=== PATIENT | female | born 1995 | race Caucasian/White ===

== ENCOUNTER 2020-02-07 12:47 | Emergency (ER) | payer OTHER, SELFPAY ==
--- NOTE | 2020-02-07 15:17 | PC.NURSE ---
pt called x 3 in waiting room
== END 2020-02-07 16:32 | disposition left against medical advice (07) ==
PROVIDERS: Emergency Provider Emergency Medicine
DX: M79.605 Pain in left leg (principal); M79.604 Pain in right leg
CPT/HCPCS: 99281

== ENCOUNTER 2020-02-09 16:55 | Emergency (ER) | payer OTHER, SELFPAY ==
[2020-02-09 20:00] VITALS: BP 122/72; PULSE 73; RESP 17; O2SAT 98
[2020-02-09 20:43] VITALS: BP 130/73; PULSE 72; RESP 16; TEMP 36.9; O2SAT 99; BMI 36.3
[2020-02-09 21:06] LABS: Appearance Urine CLEAR; Color Urine YELLOW; Glucose Urine UA NEG (NEG); Leukocyte Esterase Urine NEG (NEG); Nitrite Urine NEG (NEG); PH 5.5 (5.0-8.0); Specific Gravity - Urine >= 1.030 (1.005-1.025); Urine Blood NEG (NEG); Urine Ketones NEG (NEG); Urine Protein NEG (NEG-TRACE)
[2020-02-09 21:12] LABS: UPreg QC Valid YES; Urine Pregnancy POSITIVE (NEGATIVE)
--- NOTE | 2020-02-09 21:17 | ED.ABDPAIN ---
HPI - Abdominal Pain General Chief Complaint: Abdominal Pain Stated Complaint: ABD PAIN/10 WKS PREG Time Seen by Provider: 02/09/20 21:13 History of Present Illness HPI narrative: Patient is a 24-year-old female . Patient's last menstrual period was November 28. Presents today with having abdominal pain mainly over the lower abdomen. There is no vaginal discharge. No fever no chills no coughing or congestion or upper respiratory symptoms no diarrhea positive nausea. Patient from home. Pain is rated as 5/10 over the entire lower abdomen. Patient is sexually active no vaginal discharge. No history of gonorrhea chlamydia. No history of ectopic in the past. Patient had a successful vaginal delivery during her last Related Data Date of Last Menstrual Period: 12/01/19 Allergies Allergy/AdvReac Type Severity Reaction Status Date / Time No Known Allergies Allergy Unverified 01/01/20 19:07 [No Known Allergies*] Review of Systems Review of Systems Constitutional: No Weight loss, No Fever, No Chills, No Night Sweats, No Fatigue, No Malaise ENT/Mouth: No Hearing loss, No Ear Pain, No Nasal Congestion, No Sinus Pain, No Hoarseness, No sore throat, No Rhinorrhea, No Swallowing Difficulty Eyes: No Eye Pain, No Swelling, No Redness, No Foreign Body, No Discharge, No Vision Changes Cardiovascular: No Chest Pain, No SOB, No Dyspnea on Exertion, No Orthopnea, No Edema, No Palpitations Respiratory: No Cough, No Sputum, No Wheezing, No Smoke Exposure, No Dyspnea Gastrointestinal: No Nausea, No Vomiting, No Diarrhea, No Constipation, positive abdominal Pain, No Hematochezia, No Melena Genitourinary: no irregular bleeding, No Dysuria, No Urinary Frequency, No Hematuria, No Urinary Incontinence, No Urgency, No Flank Pain, No Urinary Flow Changes, No Hesitancy Musculoskeletal: No joint pain, No Myalgias, No Joint Swelling Skin: No Skin Lesions, No rash Neuro: No Weakness, No Numbness, No Paresthesias, No Loss of Consciousness, No Dizziness, No Headache Psych: No Anxiety/Panic, No Depression, No SI/HI/AH/VH, No Social Issues, Heme/Lymph: No Bruising, No Bleeding,No Lymphadenopathy Endocrine: No Polyuria, No Polydipsia, No Temperature Intolerance Physical Exam Vital Signs: Vital Signs: Vital Signs Temp Pulse Resp BP Pulse Ox 02/09/20 20:43 98.4 F 72 16 130/73 99 02/09/20 20:00 73 17 122/72 98 Body Mass Index 36.3 Appearance: Alert. Oriented X3. No acute distress. Eyes: Pupils equal, round and reactive to light. ENT: Pharynx normal. Neck: Normal inspection. Neck supple. No lymph nodes noted. No crepitus CVS: Normal heart rate and rhythm. Pulses normal. Normal S1 and S2 Respiratory: No respiratory distress. Breath sounds normal. No Wheezing. No rales Abdomen: Soft and nontender. No rigidity. No distention. good BS x4 Skin: Skin warm and dry. Normal skin color. Normal skin turgor. Extremities: No lower extremity edema. Neurovascular intact to all extremities. No Lacerations. No Rash Neuro: Oriented X 3. No motor deficit. No sensory deficit. Moving all extermities. No slurred speech MDM - Abdominal Pain MDM Narrative Medical decision making narrative: Ultrasound shows an intrauterine . Patient's urine showed no evidence of infection. Patient's electrolytes unremarkable. Will discharge patient home. Blood type is O-positive. Currently in stable condition. Repeat abdominal exam is soft nontender. Risk of appendicitis is low. Question of patient's pain from a corpus luteal cyst. 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 Lab Data Attestation: I reviewed the patient's lab results. Result diagrams: 02/09/20 22:15 02/09/20 22:16 Labs: Lab Results 02/09/20 02/09/20 02/09/20 Range/Units 20:58 20:58 22:15 WBC 12.9 H (4.8-10.8) X10*3/uL RBC 4.34 (4.20-5.50) X10*6/uL Hgb 12.5 (12.0-16.0) g/dl Hct 37.5 (37-47) % MCV 86.4 (80-98) fL MCH 28.8 (27.0-33.0) pg MCHC 33.3 (31.0-35.0) g/dl RDW 12.9 (11.0-16.0) % Plt Count 299 (160-400) X10*3/uL MPV 9.7 (9.4-12.3) fL Immature Gran % (Auto) 0.6 H (0.0-0.4) % Neut % (Auto) 61.3 (45-73) % Lymph % (Auto) 31.6 (20-40) % [place] % (Auto) 4.9 (2-11) % Eos % (Auto) 1.1 (0-4) % Baso % (Auto) 0.5 (0-2) % Lymph # (Auto) 4.1 (1.2-4.9) X10*3/uL [place] # (Auto) 0.6 (0.1-1.2) X10*3/uL Eos # (Auto) 0.1 (0.0-0.4) X10*3/uL Baso # (Auto) 0.1 (0.0-0.2) X10*3/uL Abs Immat Gran (auto) 0.08 H (0.00-0.03) X10*3/uL Absolute Neuts (auto) 7.9 (2.0-8.3) X10*3/uL Absolute Nucleated RBC 0.000 (0.0-0.012) X10*3/uL Nucleated RBC % (auto) 0.0 (0.0-0.2) /100WBC Sodium (135-145) mmol/L Potassium (3.3-5.1) mmol/l Chloride (96-108) mmol/L Carbon Dioxide (22-29) mmol/L Anion Gap (12-20) BUN (9-16) mg/dL Creatinine (0.5-1.4) mg/dL Estim Creat Clear Calc Estimated GFR Random Glucose (60-115) mg/dL Calcium (8.4-10.2) mg/dL Total Bilirubin (0.0-1.0) mg/dL Direct Bilirubin (0.0-0.5) mg/dL AST (5-31) U/L ALT (0-31) U/L Alkaline Phosphatase (39-117) U/L Total Protein (6.5-8.0) g/dL Albumin (3.5-5.0) g/dL Beta HCG, Quant mIU/mL Urine Color YELLOW Urine Appearance CLEAR Urine pH 5.5 (5.0-8.0) Ur Specific [place] >= 1.030 H (1.005-1.025) Urine Protein NEG (NEG-TRACE) MG/DL Urine Glucose (UA) NEG (NEG) MG/DL Urine Ketones NEG (NEG) MG/DL Urine Blood NEG (NEG) Urine Nitrite NEG (NEG) Ur Leukocyte Esterase NEG (NEG) Urine Test POSITIVE H (NEGATIVE) Blood Type 02/09/20 02/09/20 Range/Units 22:16 22:16 WBC (4.8-10.8) X10*3/uL RBC (4.20-5.50) X10*6/uL Hgb (12.0-16.0) g/dl Hct (37-47) % MCV (80-98) fL MCH (27.0-33.0) pg MCHC (31.0-35.0) g/dl RDW (11.0-16.0) % Plt Count (160-400) X10*3/uL MPV (9.4-12.3) fL Immature Gran % (Auto) (0.0-0.4) % Neut % (Auto) (45-73) % Lymph % (Auto) (20-40) % [place] % (Auto) (2-11) % Eos % (Auto) (0-4) % Baso % (Auto) (0-2) % Lymph # (Auto) (1.2-4.9) X10*3/uL [place] # (Auto) (0.1-1.2) X10*3/uL Eos # (Auto) (0.0-0.4) X10*3/uL Baso # (Auto) (0.0-0.2) X10*3/uL Abs Immat Gran (auto) (0.00-0.03) X10*3/uL Absolute Neuts (auto) (2.0-8.3) X10*3/uL Absolute Nucleated RBC (0.0-0.012) X10*3/uL Nucleated RBC % (auto) (0.0-0.2) /100WBC Sodium 136 (135-145) mmol/L Potassium 4.1 (3.3-5.1) mmol/l Chloride 102 (96-108) mmol/L Carbon Dioxide 25 (22-29) mmol/L Anion Gap 13 (12-20) BUN 8 L (9-16) mg/dL Creatinine 0.68 (0.5-1.4) mg/dL Estim Creat Clear Calc 142.3 Estimated GFR > 60 Random Glucose 85 (60-115) mg/dL Calcium 8.8 (8.4-10.2) mg/dL Total Bilirubin 0.3 (0.0-1.0) mg/dL Direct Bilirubin < 0.2 (0.0-0.5) mg/dL AST 21 (5-31) U/L ALT 24 (0-31) U/L Alkaline Phosphatase 39 (39-117) U/L Total Protein 7.2 (6.5-8.0) g/dL Albumin 4.3 (3.5-5.0) g/dL Beta HCG, Quant 75461 mIU/mL Urine Color Urine Appearance Urine pH (5.0-8.0) Ur Specific [place] (1.005-1.025) Urine Protein (NEG-TRACE) MG/DL Urine Glucose (UA) (NEG) MG/DL Urine Ketones (NEG) MG/DL Urine Blood (NEG) Urine Nitrite (NEG) Ur Leukocyte Esterase (NEG) Urine Test (NEGATIVE) Blood Type O Positive Discharge Plan Discharge Clinical Impression: Abdominal pain Patient Disposition: Home, Self-Care Instructions: Abdominal Pain in (ED) Referrals: Eddie Navarrete MD [Physician] - 2 days [facility] Past Medical History : 2 Para: 1 Date of Last Menstrual Period: 12/01/19 Social History Social History Smoking Status: Former smoker Smoked in Last 30 Days: No Use of substances other than those prescribed or required for medical reasons: No Advance Directives: No Advance Directives Information Provided: Yes
--- NOTE | 2020-02-09 21:18 | US_ITS ---
EXAMINATION: US OB CLINICAL INFORMATION: with pain with question of ectopic . COMPARISON: None TECHNIQUE: Both transabdominal and endovaginal scanning was performed. FINDINGS: A gestational sac was present in the uterus along with a yolk sac and a pole. The crown-rump length was 3 cm corresponding to a gestational age of 10 weeks 0 days with an MESHA of 09/06/2020. The fetus was active during the course of the exam and a normal heart rate of 169 bpm was noted. A small area of subchorionic hemorrhage was noted. The right ovary measures 3.5 x 1.9 x 2.5 cm and contains a 1.9 x 1.6 x 2.0 cm cyst. The left ovary measures 4.0 x 1.5 x 3.5 cm and contains a 1.6 x 1.4 x 1.8 cm cyst. No free fluid is present in the cul-de-sac. US/US OB <= 14 weeks fetus IMPRESSION: A single active fetus is noted with a normal heart rate with gestational age estimated at 10 weeks with an MESHA of 09/06/2020.
--- NOTE | 2020-02-09 21:37 | PC.NURSE ---
patient taken to ultrasound for imaging. this delying labs and iv insertion.
[2020-02-09] MEDS: 0.9 % Sodium Chloride 1,000 ML 999 ML IVCONT (22:00)
[2020-02-09 22:27] LABS: Basophils Absolute Auto 0.1 X10*3/uL (0.0-0.2); Basophils Percent Auto 0.5 % (0-2); Eosinophils Absolute Auto 0.1 X10*3/uL (0.0-0.4); Eosinophils Percent Auto 1.1 % (0-4); Hematocrit 37.5 % (37-47); Hemoglobin 12.5 g/dl (12.0-16.0); Imm Gran Abs Auto 0.08 X10*3/uL (0.00-0.03); Imm Gran Pct Auto 0.6 % (0.0-0.4); Lymphocytes Absolute Auto 4.1 X10*3/uL (1.2-4.9); Lymphocytes Percent Auto 31.6 % (20-40); MANUAL DIFF FLAG NO; Mean Corpuscular HGB Conc 33.3 g/dl (31.0-35.0); Mean Corpuscular Hemoglobin 28.8 pg (27.0-33.0); Mean Corpuscular Volume 86.4 fL (80-98); Mean Platelet Volume 9.7 fL (9.4-12.3); Monocytes Absolute Auto 0.6 X10*3/uL (0.1-1.2); Monocytes Percent Auto 4.9 % (2-11); Neutrophils Absolute Auto 7.9 X10*3/uL (2.0-8.3); Neutrophils Percent Auto 61.3 % (45-73); Platelet Count 299 X10*3/uL (160-400); Red Blood Count 4.34 X10*6/uL (4.20-5.50); Red Cell Distribution Width 12.9 % (11.0-16.0); White Blood Count 12.9 X10*3/uL (4.8-10.8)
[2020-02-09 22:52] LABS: Alanine Aminotransferase 24 U/L (0-31); Albumin Level 4.3 g/dL (3.5-5.0); Alkaline Phosphatase 39 U/L (39-117); Anion Gap 13 (12-20); Aspartate Amino Transferase 21 U/L (5-31); Bilirubin Direct < 0.2 mg/dL (0.0-0.5); Bilirubin Total 0.3 mg/dL (0.0-1.0); Blood Urea Nitrogen 8 mg/dL (9-16); Calcium 8.8 mg/dL (8.4-10.2); Carbon Dioxide 25 mmol/L (22-29); Chloride 102 mmol/L (96-108); Creatinine Clr Calc Pharmacy 142.3; Estimated Glomerular Filt Rate > 60; Glucose Random 85 mg/dL (60-115); Potassium 4.1 mmol/l (3.3-5.1); Sodium 136 mmol/L (135-145); Total Protein 7.2 g/dL (6.5-8.0)
== END 2020-02-09 23:49 | disposition home or self-care (01) ==
PROVIDERS: Emergency Provider Emergency Medicine Emergency Medical Services
DX: O26.91 Pregnancy related conditions, unspecified, first trimester (principal); R10.9 Unspecified abdominal pain; Z3A.10 10 weeks gestation of pregnancy
CPT/HCPCS: 36415; 76801; 80048; 80076; 81003; 81025; 84702; 85025; 86900; 86901; 96360; 99284

== ENCOUNTER 2022-04-29 22:29 | Emergency (ER) | payer OTHER, SELFPAY ==
[2022-04-29 22:31] VITALS: BP 142/79; PULSE 86; RESP 18; TEMP 35.9; O2SAT 97; BMI 46.5
[2022-04-29] MEDS: Ketorolac Tromethamine 15 MG/ML VIAL 30 MG IM (22:56)
--- NOTE | 2022-04-29 22:56 | ED.DENTAL ---
HPI - Dental/Oral General Chief complaint: Dental/Oral Stated complaint: pain inside mouth Time Seen by Provider: 04/29/22 22:44 Source: patient Mode of arrival: ambulatory Limitations: no limitations History of Present Illness HPI Narrative: This is a 26-year-old female presenting with pain to her right upper molar times a few days worsening, patient tells me that she was scheduled to get a root canal however she tells me she again ordered her dentist suggestion, since then her right tooth has been bothering her, she tells me it hurts to open her mouth, now she reports she has a bump in front of her right ear. Patient denies any difficulty in controlling secretions. Denies fevers, chills, changes in voice, nausea, vomiting, chest pain, shortness of breath, headache, vision changes, dizziness, ear pain, neck pain. Patient has not seen her dentist and a little while. Related Data Previous Rx's Medication Instructions Recorded amoxicillin 875 mg-potassium 1 tab PO BID 7 days #14 tabs 04/29/22 clavulanate 125 mg tablet ketorolac 10 mg tablet 10 mg PO TID PRN pain 5 days #15 04/29/22 tabs Allergies Allergy/AdvReac Type Severity Reaction Status Date / Time No Known Allergies Allergy Unverified 01/01/20 19:07 [No Known Allergies*] Review of Systems Review of Systems: Constitutional : No Weight loss, No Fever, No Chills, No Fatigue, No Malaise ENT/Mouth : No sore throat, No Rhinorrhea, + Dental pain Eyes: No Eye Pain, No Swelling, No Redness Cardiovascular : No Chest Pain, No SOB, No Dyspnea on Exertion, No Orthopnea, No Edema, No Palpitations Respiratory : No Cough, No Sputum, No Wheezing Gastrointestinal : No Nausea, No Vomiting, No Diarrhea, No Constipation, No abdominal Pain, No Hematochezia, No Melena Genitourinary : No Dysuria, No Urinary Frequency, No Hematuria, Musculoskeletal : No joint pain, No Myalgias, No Joint Swelling Skin : No Skin Lesions, No rash Neuro : No Weakness, No Numbness, No Dizziness, No Headache Psych : No Anxiety/Panic, No Depression All other systems reviewed and are negative Yes all other systems are reviewed and are negative PMFSH Past Medical History Attestation statement: The following information was validated with the patient. Source: old records reviewed and nursing notes reviewed Physical Exam Vital Signs: Vital Signs: Last Vital Signs Temp 96.6 F L 04/29/22 22:31 Pulse 86 04/29/22 22:31 Resp 18 04/29/22 22:31 BP 142/79 H 04/29/22 22:31 Pulse Ox 97 04/29/22 22:31 O2 Del Method 04/29/22 22:31 BMI result Body Mass Index 46.5 Vital signs stable Appearance: Alert.? Oriented X3.? No acute distress.? Head: Normocephalic, atraumatic, no step-offs or deformities Eyes: Pupils equal, round and reactive to light.? ENT: Pharynx normal.? Uvula midline. Patient speaking full sentences controlling secretions well. Patient reports pain when opening mouth however able to open her mouth. Patient has a caries noted to the 3rd molar on the left upper area. Patient has poor dentition throughout halitosis. She has left preauricular lymphadenopathy present on my exam. No signs of dental abscess. Neck: Normal inspection.? Neck supple.? CVS: Normal heart rate and rhythm.? Pulses normal.? Respiratory: No respiratory distress.? Breath sounds normal.? Abdomen: Soft and nontender.? Skin: Skin warm and dry.? Normal skin color.? Normal skin turgor.? Extremities: 5/5 strength to bilateral upper and lower extremities Neuro: Oriented X 3.? No motor deficit.? No sensory deficit. CN 2-12 intact Course Reevaluation(s) Reevaluation #1: My attending Dr. Everett evaluated patient, also feels as though this is a dental caries reactive lymphadenopathy. No signs of abscess. No need for further imaging. Patient will be discharged home with Augmentin and PCP and dental follow-up. Educated patient on diagnosis and treatment plan, answered all question, patient verbalizes understanding. At this time patient will be discharged home, advised to return with new or worsening symptoms. Educated on worrisome signs and symptoms and when to return. At this time I feel comfortable discharge home. Time: 23:01 Medical Decision Making Medical Decision Making MDM Narrative: This is a 26-year-old female presenting with dental pain for few days progressively worsening. Also reporting a bump in front of her left ear. Denies fevers and chills. Denies changes in voice or difficulties controlling secretions. Physical exam significant for Pharynx normal.? Uvula midline. Patient speaking full sentences controlling secretions well. Patient reports pain when opening mouth however able to open her mouth. Patient has a caries noted to the 3rd molar on the left upper area. Patient has poor dentition throughout halitosis. She has left preauricular lymphadenopathy present on my exam. No signs of dental abscess. Likely dental caries with infection causing reactive lymphadenopathy. Unlikely dental abscess, epiglottitis, peritonsillar abscess, no signs of airway compromise. Plan at this time discharge patient home with antibiotics and follow-up with dentist. Have my attending review this case. Differential Diagnosis Differential Diagnoses: The differential diagnosis associated with the presentation includes Likely dental caries with infection causing reactive lymphadenopathy. Unlikely dental abscess, epiglottitis, peritonsillar abscess, no signs of airway compromise. Admission/Observation Consideration of admission/observation: Escalation of care including admission/observation considered Unlikely Tests considered The following testing was considered but not selected: Reason for CT of soft tissues are neck, unlikely abscess. Core Measures AMI core measures followed: Yes Measure exclusions: not indicated Discharge Plan Discharge Clinical Impression: Toothache, Dental caries Patient Disposition: Home, Self-Care Instructions: Toothache (ED) Additional Instructions: Take your medications as prescribed. If you were prescribed antibiotics today, it is important that you take your medication to their entirety, do not skip any doses, do not finish them early. Follow-up with your primary care provider this week. Return to the emergency department with new or worsening symptoms. Such as fevers, chills, chest pain, shortness of breath, nausea, vomiting, dizziness, headache, vision changes, lethargy, inability to control secretions or swallow In case of emergency call [phone] Please follow-up with a dentist if you do not have 1 please call [phone] this is the [facility] Prescriptions: New ketorolac 10 mg tablet 10 mg PO TID PRN (Reason: pain) 5 Days Qty: 15 0RF Rx Instructions: Tolerated IM in the department amoxicillin-pot clavulanate 875-125 mg tablet 1 tab PO BID 7 Days Qty: 14 0RF Referrals: Physician,Unknown J [Primary Care Provider] - 2 days Stand Alone Forms: Work/School Release
--- OUTSIDE RECORDS SUMMARY | 2022-04-29 23:17 | XMS_ITS ---
:1995 Author Care Team Providers Name Role Phone [facility] vider [phone] Allergies Code Code System Name Reaction Severity Status Onset NKDA ? Medications Name Status Start Date Stop Date ? ? acetaminophen 325 mg tablet Completed ? 11/15 TAKE 3 TABLETS BY MOUTH EVERY 8 HOURS NEEDED amoxicillin 875 mg-potassium clavulanate 125 mg tablet Completed ? 12/10/2020 TAKE 1 TABLET BY MOUTH TWICE A DAY FOR 10 DAYS aspirin 81 mg tablet,delayed release Completed ? 12/10/2020 TAKE 1 TABLET BY MOUTH TWICE A DAY docusate sodium 100 mg capsule Completed ? 0 12/10/2020 TAKE 1 CAPSULE BY MOUTH TWICE A DAY ferrous sulfate 325 mg (65 mg iron) tablet Completed ? 12/10/2020 TAKE 1 TABLET BY MOUTH EVERY OTHER DAY fluticasone propionate 50 mcg/actuation nasal spray,suspension C ompleted ? 12/10/2020 USE 2 SPRAYS IN EACH NOSTRIL EVERY DAY hydrocortisone 1 % topical ointment Completed ? 12/10/2020 APPLY TO AFFECTED AREA 3 TIMES A DAY ibuprofen 800 mg tablet Completed ? 12/11/19 21 TAKE 1 TABLET BY MOUTH EVERY 8 HOURS WITH FOOD OR MILK Mi-Acid Gas Relief (simethicone) 80 mg chewable tablet Completed ? 12/10/2020 CHEW 1 TABLET 3 TIMES A DAY NEEDED FOR GAS oxycodone 5 mg tablet Completed ? 12/10/2020 1 TABLET BY MOUTH EVERY 3 HOURS NEEDED FOR PAIN SEVERE,INSTR (7 10) Vitamins Plus Low Iron 27 mg iron-1 mg tablet Completed ? 12/10/2020 TAKE 1 TABLET BY MOUTH EVERY DAY ProAir HFA 90 mcg/actuation aerosol inhaler Completed ? 12/10/2020 INHALE 2 PUFFS INTO THE LUNGS EVERY 4 H OURS NEEDED FOR COUGH, WHEEZING OR SHORTNESS OF BREATH. Problems Name Status Onset Date Source ? Ingrowing Nail Active 12/10/2020 ? Procedures Date Name Performed by ? ? Section Information not avai lable Results Lab Results None recorded. Past Encounters Encounter Date Diagnosis Provider 12/17/2020 Ingrowing Nail Juan gutierrez DPM: [address] [facility] [address], [place] [address], Ph. 12/10/2020 Paronychia Juan gutierrez DPM: [address] [facility] [address], [facility] A [address], Ph. Social History Tobacco Smoking Status Former Smoker Vaccine List None recorded. Plan of Care Reminders Provider Appointments None recorded. ? ? Lab None recorded. ? ? Referral None recorded. ? ? Procedures None recorded. ? ? Surgeries None recorded. ? ? Imaging None recorded. ? ? Vitals 12/17/2020 09:30AM FOLLOW UP 15 Height 5 ft 4 in 12/10/2020 09:30AM NEW PATIENT 30 Height Weight BMI 5 ft 4 in 189 lbs 32.4 kg/m2
== END 2022-04-29 23:48 | disposition home or self-care (01) ==
PROVIDERS: Emergency Provider Internal Medicine
DX: K08.89 Other specified disorders of teeth and supporting structures (principal); K02.9 Dental caries, unspecified
CPT/HCPCS: 96372; 99283; 99284; J1885

== ENCOUNTER 2022-08-21 21:03 | Emergency (ER) | payer OTHER, SELFPAY ==
--- NOTE | ~2022-08-21 | XR_ITS ---
EXAMINATION: CHEST 2 VIEWS CLINICAL INFORMATION: shortness of breath. COMPARISON: No recent pertinent prior studies are available for comparison. TECHNIQUE: PA and lateral views of the chest obtained. FINDINGS: The lungs are well expanded. No focal infiltrate, effusion, edema, or pneumothorax. Cardiac and mediastinal silhouettes are within normal limits for technique. No acute bony abnormality seen XR/XR chest 2V IMPRESSION: No evidence of acute disease
[2022-08-21 21:04] VITALS: BP 140/79; PULSE 97; RESP 18; TEMP 36.7; O2SAT 92; BMI 23.5
--- NOTE | 2022-08-21 21:08 | ED_ITS ---
HPI - Asthma General Chief Complaint: Asthma <Bong Turpin - Last Filed: 08/21/22 21:09> Stated Complaint: asthma attack <Bong Turpin - Last Filed: 08/21/22 21:09> Time Seen by Provider: 08/22/22 00:14 <Bong Turpin - Last Filed: 08/21/22 21:09> Source: patient <JHONNY Marie Last Filed: 08/22/22 02:12> Mode of arrival: ambulatory <JHONNY Marie Last Filed: 08/22/22 02:12> Limitations: no limitations <JHONNY Marie Last Filed: 08/22/22 02:12> History of Present Illness HPI Narrative: 26-year-old female presents to the ED for asthma exacerbation. patient states coughing with chest tightness. Patient denies any leg swelling calf pa in, coughing up blood, recent long travel, recent surgery, or pleurisy. Patient denies any control use. <JHONNY Marie Last Filed: 08/22/22 02:12> Related Data Home Medications: Previous Rx's Medication Instructions Recorded amoxicillin 875 mg-potassium 1 tab PO BID 7 days #14 tabs 04/29/22 clavulanate 125 mg tablet ketorolac 10 mg tablet 10 mg PO TID PRN pain 5 days #15 04/29/22 tabs prednisone 20 mg tablet 40 mg PO DAILY 5 days #10 tabs 04/29/22 benzonatate 200 mg capsule 200 mg PO TID PRN cough 5 days #15 08/22/22 caps prednisone 20 mg tablet 60 mg PO DAILY 5 days #15 tabs 08/22/22 <Bong Turpin - Last Filed: 08/21/22 21:09> Allergies/Adverse Reactions: Allergies Allergy/AdvReac Type Severity Reaction Status Date / Time No Known Allergies Allergy Unverified 01/01/20 19:07 [No Known Allergies*] <Bong Turpin - Last Filed: 08/21/22 21:09> Review of Systems Review of Systems: Coughing. asthma exacerbation <JHONNY Marie Last Filed: 08/22/22 02:12> Yes all other systems are reviewed and are negative <JHONNY Marie - Last Filed: 08/22/22 02:12> [facility] Social History Social History: Social History Advance Directives: No Advance Directives Information Provided: Yes <Bong Turpin - Last Filed: 08/21/22 21:09> Physical Exam Vital Signs: Vital Signs: Last Vital Signs Temp 98.3 F 08/22/22 01:47 Pulse 104 H 08/22/22 01:47 Resp 16 08/22/22 01:47 BP 132/79 08/22/22 01:47 Pulse Ox 95 08/22/22 01:47 O2 Del Method Room Air 08/22/22 01:47 BMI result Body Mass Index 23.5 <Bong Turpin - Last Filed: 08/21/22 21:09> Vital Signs: Last Vital Signs Temp 98.3 F 08/22/22 01:47 Pulse 104 H 08/22/22 01:47 Resp 16 08/22/22 01:47 BP 132/79 08/22/22 01:47 Pulse Ox 95 08/22/22 01:47 O2 Del Method Room Air 08/22/22 01:47 BMI result Body Mass Index 23.5 <JHONNY Marie Last Filed: 08/22/22 02:12> Const: General: cooperative, healthy appearing, comfortable, no acute distress, well developed, alert, awake and Physically active <JHONNY Marie Last Filed: 08/22/22 02:12> Orientation/consciousness: oriented to person, oriented to place, oriented to time and patient oriented x3 <JHONNY Marie Last Filed: 08/22/22 02:12> HEENT: Head: Yes normal to inspection, Yes No palpable skull fracture present, Yes normocephalic, Yes atraumatic and No abrasion <JHONNY Marie Last Filed: 08/22/22 02:12> Eyes: General: appearance normal, both eyes and all related structures <JHONNY Marie Last Filed: 08/22/22 02:12> Neck: Neck: Yes normal visual inspection, Yes full ROM, Yes no lymphadenopathy, Yes no meningeal signs, Yes trachea midline, Yes supple, No anterior neck swelling and No tender <Mark Edilberto JHONNY Cortes Last Filed: 08/22/22 02:12> Chest: Chest palpation & inspection: normal inspection of the chest and normal palpation of entire chest wall <Mark EdilbertoJHONNY Sebastian Last Filed: 08/22/22 02:12> Resp: Effort & Inspection: normal respiratory effort and able to speak in complete sentences <Mark Edilberto, PA Sebastian Last Filed: 08/22/22 02:12> Auscultation: wheezes <Mark Edilberto, PA Sebastian Filed: 08/22/22 02:12> Cardio: Jugular venous distension: no JVD <Mark Edilberto JHONNY Cortes Last Filed: 08/22/22 02:12> Heart sounds: S1 normal heart sound present and S2 normal heart sound present <Mark Edilberto JHONNY Filed: 08/22/22 02:12> GI: Inspection: Yes normal to inspection and No abdominal wall ecchymosis <Mark EdilbertoJHONNY Sebastian Filed: 08/22/22 02:12> Palpation (GI): Soft to palpation, not firm, nontender, no guarding and not rigid <Mark Edilberto JHONNY Cortes Last Filed: 08/22/22 02:12> : General: No CVA tenderness and Yes no CVA tenderness <Mark Edilberto JHONNY Cortes Filed: 08/22/22 02:12> Back/Spine/Pelvis: Back: no CVA tenderness, No CVA tenderness and No back tenderness <Mark EdilbertoJHONNY Sebastian Last Filed: 08/22/22 02:12> Skin: General skin exam: no rashes or lesions noted and elasticity normal <Mark Edilberto JHONNY Cortes Last Filed: 08/22/22 02:12> Neuro: General: oriented to person, oriented to place, oriented to time, pat ient oriented x3, gait normal, tone normal, moves all extremities, Normal light touch and pain sensation, no meningeal signs, no focal motor deficits, CN's II- XI intact bilaterally and normal sensation to monofilament <Mark EdilbertoJHONNY Sebastian Last Filed: 08/22/22 02:12> Extrem: Other: bilateral lower extremity negative for swelling, pitting edema, or calf tenderness. <JHONNY Marie - Last Filed: 08/22/22 02:12> General: Yes normal to inspection and Yes full ROM <JHONNY Marie Last Filed: 08/22/22 02:12> Psych: Appearance: grossly normal, well kempt and not disheveled <JHONNY Marie - Last Filed: 08/22/22 02:12> Course Course Course Narrative: 26-year-old female presents for evaluation of shortness of breath. She rib feels as if she is having an exacerbation of her asthma. Her vitals are stable, she is not in any respiratory distress. She has faint wheezing on exam and right lower lobe rhonchi, chest x-ray ordered to rule out pneumonia. The patient would likely benefit from an updraft and steroids <Bong Turpin - Last Filed: 08/21/22 21:09> Reevaluation(s) Reevaluation #1: Patient given steroids and updraft albuterol DuoNeb. O2 sat improved to 95% on room air. Patient will be discharged with prednisone, cough medication. Patient recommend discussed with primary care provider for nebulizer machine. Patient states she feels better and would like to be discharged. <JHONNY Marie - Last Filed: 08/22/22 02:12> Time: 01:57 <JHONNY Marie - Last Filed: 08/22/22 02:12> Medications Administered Discontinued Medications Generic Name Dose Route Start Last Admin Trade Name Freq PRN Reason Stop Dose Admin Albuterol/Ipratropium 3 ml 08/22/22 00:38 08/22/22 01:08 Albuterol/Iprat 2.5/0.5mg 3 Ml Ampul.Neb INHALE 08/22/22 00:39 3 ml ONCE ONE Administration Prednisone 60 mg 08/22/22 00:38 08/22/22 00:46 Prednisone 20 Mg Tablet PO 08/22/22 00:39 60 mg ONCE ONE Administration <Bong Turpin - Last Filed: 08/21/22 21:09> Medications Administered Discontinued Medications Generic Name Dose Route Start Last Admin Trade Name Freq PRN Reason Stop Dose Admin Albuterol/Ipratropium 3 ml 08/22/22 00:38 08/22/22 01:08 Albuterol/Iprat 2.5/0.5mg 3 Ml Ampul.Neb INHALE 08/22/22 00:39 3 ml ONCE ONE Administration Prednisone 60 mg 08/22/22 00:38 08/22/22 00:46 Prednisone 20 Mg Tablet PO 08/22/22 00:39 60 mg ONCE ONE Administration <JHONNY Marie - Last Filed: 08/22/22 02:12> Medical Decision Making Medical Decision Making MDM Narrative: 46-year-old female presents to the ED with coughing and wheezing. Patient denies any pleurisy, leg swelling, calf pain, coughing up blood, chest pain, recent long travel, recent surgery, any shortness of breath on exertion. Chest x-ray negative pneumonia. Patient's O2 saturation improved with steroids and dual nebulizer updraft. Patient to be discharged with steroids and cough medication <JHONNY Marie Last Filed: 08/22/22 02:12> Differential Diagnosis Differential Diagnoses: The differential diagnosis associated with the presentation includes ( asthma exacerbation, pneumonia, bronchitis, URI, viral cough,) <JHONNY Marie Last Filed: 08/22/22 02:12> Admission/Observation Consideration of admission/observation: Escalation of care including admission/observation considered <JHONNY Marie Last Filed: 08/22/22 02:12> Independent Interpretation I performed an independent interpretation of an: Plain X-Ray <JHONNY Marie Last Filed: 08/22/22 02:12> Radiology Impression Discussion of test interpretation with radiology: I have reviewed the radiologist's reading. <JHONNY Marie - Last Filed: 08/22/22 02:12> Prescription Management I considered prescription management with: Other ( steroids, Tessalon Perles) <JHONNY Marie - Last Filed: 08/22/22 02:12> Discharge Plan Discharge Clinical Impression: Asthma with acute exacerbation <Bong Turpin - Last Filed: 08/21/22 21:09> Patient Disposition: Home, Self-Care <Bong Turpin - Last Filed: 08/21/22 21:09> Instructions: Asthma (DC) <Bong Turpin - Last Filed: 08/21/22 21:09> Additional Instructions: return to the ED immediately for chest pain, shortness of breath on exertion, leg swelling, calf pain, coughing up blood, chest pain on inspiration, directable fever, chills, weakness, coughing up blood, or any other concerning symptoms. <Bong Turpin - Last Filed: 08/21/22 21:09> Prescriptions: New prednisone 20 mg tablet 60 mg PO DAILY 5 Days Qty: 15 0RF benzonatate 200 mg capsule 200 mg PO TID PRN (Reason: cough) 5 Days Qty: 15 0RF No Action ketorolac 10 mg tablet 10 mg PO TID PRN (Reason: pain) 5 Days Qty: 15 0RF Rx Instructions: Tolerated IM in the department amoxicillin-pot clavulanate 875-125 mg tablet 1 tab PO BID 7 Days Qty: 14 0RF prednisone 20 mg tablet 40 mg PO DAILY 5 Days Qty: 10 0RF <Bong Turpin - Last Filed: 08/21/22 21:09> Interventions: ED Discharge Assessment Last Done: 08/22/22 02:10 <Bong Turpin - Last Filed: 08/21/22 21:09> Discharge Date/Time: 08/22/22 02:10 <Bong Turpin - Last Filed: 08/21/22 21:09> Print Language: Mongolian <Bong Turpin - Last Filed: 08/21/22 21:09>
[2022-08-22 00:25] VITALS: BP 142/76; PULSE 104; RESP 16; TEMP 37.1; O2SAT 94
[2022-08-22] MEDS: predniSONE 20 MG TABLET 60 MG PO (00:46)
[2022-08-22] MEDS: Albuterol/Iprat 2.5/0.5MG 3 ML AMPUL.NEB INHALE (01:08)
[2022-08-22 01:47] VITALS: BP 132/79; PULSE 104; RESP 16; TEMP 36.8; O2SAT 95
== END 2022-08-22 02:10 | disposition home or self-care (01) ==
PROVIDERS: Emergency Provider Internal Medicine
DX: J45.901 Unspecified asthma with (acute) exacerbation (principal)
CPT/HCPCS: 71046; 99283; 99284

== ENCOUNTER → 2023-08-09 14:01 | Outpatient (BNVA) | payer OTHER, SELFPAY | PROVIDERS: Visit Provider Physician Assistant Surgical ==